=== PATIENT | female | born 1990 ===

== ENCOUNTER 2018-10-25 17:47 | Emergency (ER) | payer OTHER ==
[~2018-10-25] VITALS: Ht 152.4 cm; Wt 34.9 kg
[~2018-10-25 17:47] MED LIST: ULTRACET PO
== END 2018-10-25 23:53 | disposition home or self-care (01) ==
LOC: ER 17:47
DX: O20.0 Threatened abortion (principal)

== ENCOUNTER 2019-02-11 16:21 | Inpatient (IN) | payer OTHER ==
[~2019-02-11] VITALS: Ht 154.9 cm; Wt 39.5 kg
[2019-02-11] MEDS ORDERED: PRENATAL TABLE1 EAC1 PO (16:23)
== END 2019-02-13 09:05 | DRG 833 ==
LOC: LDR 16:21 → OB/GYN 02-12 17:05
PROVIDERS: ADMIT Obstetrics & Gynecology
PROC: BY4CZZZ Ultrasonography of Second Trimester, Single Fetus (ICD-10-PCS; principal; 2019-02-12)
DX: O60.02 Preterm labor without delivery, second trimester (principal); Z3A.21 21 weeks gestation of pregnancy

== ENCOUNTER 2019-05-03 12:51 | Inpatient (IN) | payer OTHER ==
[~2019-05-03] VITALS: Ht 154.9 cm; Wt 44.9 kg
[~2019-05-03 12:51] MED LIST changes: +PRENATAL TABLE1 EAC1 PO
[2019-05-03] MEDS ORDERED: FOLIC ACID1 MG PO (14:22)
[2019-05-03] MEDS ORDERED: IRON PO (14:23)
[2019-05-06] MEDS ORDERED: IRON236 MG PO (11:51)
[2019-05-10] MEDS ORDERED: NIFEDIPINE20 MG PO (06:46)
== END 2019-05-10 08:50 | disposition home or self-care (01) | DRG 833 ==
LOC: OBS/DEL 12:51 → OB/GYN 05-04 08:41 → LDR 05-04 08:41 → OB/GYN 05-07 08:32
PROVIDERS: ADMIT Obstetrics & Gynecology
PROC: 4A1HXCZ Monitoring of Products of Conception, Cardiac Rate, External Approach (ICD-10-PCS; principal; 2019-05-04)
DX: O47.03 False labor before 37 completed weeks of gestation, third trimester (principal); Z34.03 Encounter for supervision of normal first pregnancy, third trimester

== ENCOUNTER 2019-06-17 05:26 | Inpatient (IN) | payer OTHER ==
[~2019-06-17] VITALS: Ht 152.4 cm; Wt 46.7 kg
[~2019-06-17 05:26] MED LIST changes: +FOLIC ACID1 MG PO; +IRON PO; +IRON236 MG PO; +NIFEDIPINE20 MG PO
== END 2019-06-19 11:12 | disposition home or self-care (01) | DRG 807 ==
LOC: LDR 05:26 → OB/GYN 05:26
PROVIDERS: ADMIT Obstetrics & Gynecology
PROC: 10E0XZZ Delivery of Products of Conception, External Approach (ICD-10-PCS; principal; 2019-06-17)
PROC: 0UQGXZZ Repair Vagina, External Approach (ICD-10-PCS; 2019-06-17)
PROC: 4A1HXCZ Monitoring of Products of Conception, Cardiac Rate, External Approach (ICD-10-PCS; 2019-06-17)
PROC: 3E033VJ Introduction of Other Hormone into Peripheral Vein, Percutaneous Approach (ICD-10-PCS; 2019-06-17)
DX: O71.4 Obstetric high vaginal laceration alone (principal); Z37.0 Single live birth; Z3A.39 39 weeks gestation of pregnancy